=== PATIENT | male | born 1955 | race Hispanic/Latino ===

== ENCOUNTER 2025-05-16 04:12 | Inpatient (IN) | payer MEDICARE ==
[2025-05-16 05:34] LABS: ALT (SGPT) 7 U/L (Less than 45); AST (SGOT) 21 U/L (11-34); Albumin 2.8 g/dL (3.1-4.5); Alkaline Phosphatase 81 U/L (40-110); Anion Gap 13 mmol/L (10-20); BUN (Urea Nitrogen) 47 mg/dL (8.4-25.7); Bilirubin, Total 0.1 mg/dL (0.3-1.2); Calc. Creatinine Clearance 0 mL/min (70-130); Calcium 8.4 mg/dL (7.8-10.44); Carbon Dioxide 19 mmol/L (23-31); Chloride 112 mmol/L (98-107); Estimated GFR 19; Globulin 4.2 g/dL (2.4-3.5); Glucose 98 mg/dL (83-110); Lipase 64 U/L (8-78); Potassium 4.9 mmol/L (3.5-5.1); Sodium 139 mmol/L (136-145)
[2025-05-16 05:36] LABS: Troponin I 0.031 ng/mL (< 0.028)
[2025-05-16 05:43] LABS: #Basophils Less than 0.03 10x3/uL (0.0-0.2); #Eosinophils 0.13 10x3/uL (0.0-0.7); #Monocytes 0.71 10x3/uL (0.11-0.59); #Neutrophils 4.44 10x3/uL (1.40-6.50); %Basophils 0.2 % (0.0-1.0); %Eosinophils 2.1 % (0.0-10.0); %Lymphocytes 15.2 % (21.0-51.0); %Monocytes 11.3 % (0.0-10.0); %Neutrophils 70.9 % (42.0-75.0); Hematocrit 11.6 % (42.0-52.0); Hemoglobin 3.4 g/dL (14.0-18.0); Mean Corpuscular HGB CONC 29.3 g/dL (32.0-36.0); Mean Corpuscular Hemoglobin 21.8 pg (27.0-31.0); Mean Corpuscular Volume 74.4 fL (78.0-98.0); Platelet Count 353 10x3/uL (130-400); RBC Distribution Width 17.8 % (11.5-14.5); Red Blood Cell (RBC) Count 1.56 mill/uL (4.70-6.10); White Blood Cell (WBC) Count 6.26 10x3/uL (4.8-10.8)
[2025-05-16 07:54] LABS: Anisocytosis MODERATE=16-30 cells HPF (0-5); Band 2 % (5-11); Elliptocytes SLIGHT = 2-5 cells HPF (0-1); Eosinophils 5 % (0-10); Hypochromia SLIGHT = 6-15 cells HPF (0-5); Large Platelets 3.7 % (0-5); Lymphocytes 8 % (21-51); Metamyelocyte 1 % (0-0); Monocytes 6 % (0-10); Neutrophil 78 % (42-75); Platelet Adequacy Comment Platelets Normal; Smudge Cells 2.8 %
[2025-05-16 08:42] LABS: Bilirubin Negative (Negative); Blood, Urine Negative (Negative); Clarity Clear (Clear); Glucose, Urine (Dipstick) Normal (Negative); Ketone, Urine Negative (Negative); Leukocyte Negative Leu/uL (Negative); Nitrite Negative (Negative); Protein, Urine (Dipstick) Negative (Neg-Trace); Specific Gravity, Urine 1.011 (1.002-1.036); Urobilinogen Normal mg/dL (Less than 2)
[2025-05-16 08:55] LABS: CAUTI Indications for Culture Alt mental st,lethar; RBC/HPF None Seen HPF (0-3); Squamous Epithelial None Seen HPF (0-3); Urine Culture Reflex No No; WBC/HPF None Seen HPF (0-3)
[2025-05-16] MEDS ORDERED: Melatonin 3 MG TAB PO PRN (10:14)
[2025-05-16] MEDS ORDERED: Acetaminophen 325 MG TAB ONE (12:48)
[2025-05-16 12:54] LABS: Hemoglobin 6.9 g/dL (14.0-18.0)
[2025-05-16 13:36] LABS: INR-International Normal Ratio 1.2; Prothrombin Time 15.3 sec (12.0-14.7)
[2025-05-16 13:40] LABS: #Basophils 0.03 10x3/uL (0.0-0.2); #Eosinophils 0.07 10x3/uL (0.0-0.7); #Monocytes 0.58 10x3/uL (0.11-0.59); #Neutrophils 5.24 10x3/uL (1.40-6.50); %Basophils 0.4 % (0.0-1.0); %Lymphocytes 11.7 % (21.0-51.0); %Monocytes 8.6 % (0.0-10.0); %Neutrophils 77.9 % (42.0-75.0); Hematocrit 21.8 % (42.0-52.0); Hemoglobin 6.9 g/dL (14.0-18.0); Mean Corpuscular HGB CONC 31.7 g/dL (32.0-36.0); Mean Corpuscular Hemoglobin 24.8 pg (27.0-31.0); Mean Corpuscular Volume 78.4 fL (78.0-98.0); Mean Platelet Volume 10.2 fL (7.4-10.4); Platelet Count 349 10x3/uL (130-400); RBC Distribution Width 16.5 % (11.5-14.5); Red Blood Cell (RBC) Count 2.78 mill/uL (4.70-6.10); White Blood Cell (WBC) Count 6.74 10x3/uL (4.8-10.8)
[2025-05-16 15:54] VITALS: BMI 19.2
[2025-05-16 17:14] LABS: Hematocrit 19.2 % (42.0-52.0); Hemoglobin 6.3 g/dL (14.0-18.0)
[2025-05-16] MEDS: Sodium Ferric Gluconate 250 MG in Sodium Chloride 0.9% 250 ML 250 ML IVPB SCH ×2 (17:24→17:46)
[2025-05-16] MEDS: Tamsulosin HCl 0.4 MG CAP PO SCH (17:46)
[2025-05-17] MEDS: Acetaminophen 325 MG TAB PO PRN (00:35)
[2025-05-17 01:12] LABS: Hemoglobin 7.3 g/dL (14.0-18.0)
[2025-05-17 04:54] LABS: #Basophils 0.03 10x3/uL (0.0-0.2); #Eosinophils 0.11 10x3/uL (0.0-0.7); #Monocytes 0.74 10x3/uL (0.11-0.59); #Neutrophils 6.34 10x3/uL (1.40-6.50); %Basophils 0.4 % (0.0-1.0); %Eosinophils 1.4 % (0.0-10.0); %Lymphocytes 8.1 % (21.0-51.0); %Monocytes 9.4 % (0.0-10.0); %Neutrophils 80.3 % (42.0-75.0); Hematocrit 22.8 % (42.0-52.0); Hemoglobin 7.3 g/dL (14.0-18.0); Mean Corpuscular Hemoglobin 25.4 pg (27.0-31.0); Mean Corpuscular Volume 79.4 fL (78.0-98.0); Mean Platelet Volume 9.9 fL (7.4-10.4); Platelet Count 339 10x3/uL (130-400); RBC Distribution Width 16.4 % (11.5-14.5); Red Blood Cell (RBC) Count 2.87 mill/uL (4.70-6.10); White Blood Cell (WBC) Count 7.89 10x3/uL (4.8-10.8)
[2025-05-17 05:35] LABS: Phosphorus 4.2 mg/dL (2.5-4.5)
[2025-05-17 05:46] LABS: ALT (SGPT) Less than 7 U/L (Less than 45); AST (SGOT) 15 U/L (11-34); Alkaline Phosphatase 88 U/L (40-110); Anion Gap 19 mmol/L (10-20); BUN (Urea Nitrogen) 50 mg/dL (8.4-25.7); Bilirubin, Total 0.5 mg/dL (0.3-1.2); Calc. Creatinine Clearance 14 mL/min (70-130); Calcium 8.7 mg/dL (7.8-10.44); Carbon Dioxide 16 mmol/L (23-31); Chloride 110 mmol/L (98-107); Estimated GFR 17; Globulin 4.2 g/dL (2.4-3.5); Glucose 100 mg/dL (83-110); Magnesium 2.3 mg/dL (1.6-2.6); Protein, Total 7.2 g/dL (5.8-8.1); Sodium 140 mmol/L (136-145)
[2025-05-17] MEDS: Tamsulosin HCl 0.4 MG CAP PO SCH (08:37)
[2025-05-17] MEDS: fentaNYL 50 mcg/mL 1 mL Vial SLOW IVP SCH (08:37)
[2025-05-17] MEDS: Pantoprazole 40 MG DR.TAB PO SCH (08:38)
[2025-05-17] MEDS: MULTIVIT/IRON SULF/FOLIC ACID 1 EACH TAB PO SCH (08:38)
[2025-05-17] MEDS: Amlodipine 5 MG TAB PO SCH (08:39)
[2025-05-17] MEDS ORDERED: Amlodipine 5 MG TAB PO SCH (09:00)
[2025-05-17] MEDS ORDERED: Acetaminophen 325 MG TAB PO SCH (09:00)
[2025-05-17] MEDS ORDERED: Lidocaine 1% PF 5 ML VIAL ONE (12:00)
[2025-05-17] MEDS ORDERED: Sodium Bicarbonate 2.5 MEQ/5 ML SDV ONE (12:00)
[2025-05-17] MEDS: HYDROcodone/Acetaminophen 5/325 mg Tablet PO PRN (14:17)
[2025-05-17] MEDS: Ondansetron ODT 4 MG TAB PO PRN (15:16)
[2025-05-17 16:21] LABS: Hematocrit 23.7 % (42.0-52.0); Hemoglobin 7.6 g/dL (14.0-18.0)
[2025-05-17 17:16] LABS: CEA, Serum 1.78 ng/mL (< or = 5.0)
[2025-05-17] MEDS: Sodium Bicarbonate 150 MEQ in Dextrose 5% in Water 1,000 ML IV SCH (17:56)
[2025-05-17 18:24] LABS: PSA-Symptomatic (DIAGNOSTIC) 1.198 ng/mL (0-4.0)
[2025-05-17 20:36] LABS: Creatinine, Urine 71.7 mg/dL (22.00-328.00); Microalbumin Urine 1.5 mg/dL (0.5-50.0); Microalbumin/Creat Ratio 20.9 mg/g (Less than 30)
[2025-05-17] MEDS: Melatonin 3 MG TAB PO SCH (21:03)
[2025-05-18 05:04] LABS: Anion Gap 12 mmol/L (10-20); BUN (Urea Nitrogen) 40 mg/dL (8.4-25.7); Calc. Creatinine Clearance 16 mL/min (70-130); Calcium 8.5 mg/dL (7.8-10.44); Carbon Dioxide 20 mmol/L (23-31); Chloride 110 mmol/L (98-107); Estimated GFR 19; Glucose 93 mg/dL (83-110); Potassium 4.2 mmol/L (3.5-5.1); Sodium 138 mmol/L (136-145)
[2025-05-18] MEDS: Polyethylene Glycol 3350 17 GM Packet PO SCH (08:23)
[2025-05-18 10:36] LABS: #Basophils 0.03 10x3/uL (0.0-0.2); #Eosinophils 0.11 10x3/uL (0.0-0.7); #Monocytes 0.71 10x3/uL (0.11-0.59); #Neutrophils 5.48 10x3/uL (1.40-6.50); %Basophils 0.4 % (0.0-1.0); %Eosinophils 1.6 % (0.0-10.0); %Lymphocytes 8.7 % (21.0-51.0); %Monocytes 10.2 % (0.0-10.0); %Neutrophils 78.5 % (42.0-75.0); Hematocrit 20.4 % (42.0-52.0); Hemoglobin 6.8 g/dL (14.0-18.0); Mean Corpuscular HGB CONC 33.3 g/dL (32.0-36.0); Mean Corpuscular Hemoglobin 26.2 pg (27.0-31.0); Mean Corpuscular Volume 78.5 fL (78.0-98.0); Mean Platelet Volume 9.4 fL (7.4-10.4); Platelet Count 246 10x3/uL (130-400); RBC Distribution Width 17.2 % (11.5-14.5); White Blood Cell (WBC) Count 6.98 10x3/uL (4.8-10.8)
[2025-05-18] MEDS ORDERED: Sodium Ferric Gluconate 250 MG in Sodium Chloride 0.9% 250 ML 250 ML IVPB SCH (12:00)
[2025-05-18 21:08] LABS: Hematocrit 27.5 % (42.0-52.0); Hemoglobin 8.8 g/dL (14.0-18.0); Platelet Count 278 10x3/uL (130-400)
[2025-05-19 03:37] LABS: #Basophils Less than 0.03 10x3/uL (0.0-0.2); #Eosinophils 0.13 10x3/uL (0.0-0.7); #Monocytes 0.88 10x3/uL (0.11-0.59); #Neutrophils 5.98 10x3/uL (1.40-6.50); %Basophils 0.3 % (0.0-1.0); %Eosinophils 1.7 % (0.0-10.0); %Lymphocytes 8.6 % (21.0-51.0); %Monocytes 11.4 % (0.0-10.0); %Neutrophils 77.6 % (42.0-75.0); Hematocrit 25.2 % (42.0-52.0); Hemoglobin 8.1 g/dL (14.0-18.0); Mean Corpuscular HGB CONC 32.1 g/dL (32.0-36.0); Mean Platelet Volume 9.8 fL (7.4-10.4); Platelet Count 259 10x3/uL (130-400); RBC Distribution Width 17.1 % (11.5-14.5); Red Blood Cell (RBC) Count 3.11 mill/uL (4.70-6.10)
[2025-05-19 04:12] LABS: Anion Gap 12 mmol/L (10-20); BUN (Urea Nitrogen) 34 mg/dL (8.4-25.7); Calc. Creatinine Clearance 15 mL/min (70-130); Calcium 8.4 mg/dL (7.8-10.44); Carbon Dioxide 25 mmol/L (23-31); Chloride 108 mmol/L (98-107); Estimated GFR 18; Glucose 103 mg/dL (83-110); Sodium 141 mmol/L (136-145)
[2025-05-19] MEDS ORDERED: Lidocaine 1% w/Epinephrine 1:100K 20 ML VIAL ONE (07:57)
[2025-05-19] MEDS ORDERED: Sodium Chloride 0.9% 500 ML ONE (07:58)
[2025-05-19] MEDS ORDERED: Iopamidol 30 ML ONE (07:58)
[2025-05-19] MEDS ORDERED: Sodium Bicarbonate 2.5 MEQ/5 ML SDV ONE (07:58)
[2025-05-19] MEDS: Senokot S 8.6-50 MG TAB PO SCH (08:09)
[2025-05-19] MEDS ORDERED: Fentanyl 100 MCG/2 ML VIAL ONE (08:18)
[2025-05-19] MEDS ORDERED: Midazolam HCl 2 mg/2 ml Vial ONE (08:18)
[2025-05-19] MEDS ORDERED: LevoFLOXacin D5W 500 mg (100 mL) BAG ONE ×2 (09:32→10:17)
[2025-05-19] MEDS: Sodium Chloride 0.45% 1,000 ML IV SCH (12:36)
[2025-05-19 13:14] LABS: Anisocytosis SLIGHT = 6-15 cells HPF (0-5); Band 5 % (5-11); Burr Cells SLIGHT = 2-5 cells HPF (0-1); Eosinophils 5 % (0-10); Large Platelets 1.7 % (0-5); Lymphocytes 3 % (21-51); Macrocytosis SLIGHT = 6-15 cells HPF (0-5); Monocytes 7 % (0-10); Neutrophil 81 % (42-75); Ovalocytes SLIGHT = 2-5 cells HPF (0-1); Platelet Adequacy Comment Platelets Normal; Polychromasia SLIGHT = 2-3 cells HPF (0-2); Smudge Cells 4.2 %; Vacuoles MODERATE
[2025-05-19] MEDS: Calcium Carbonate 500 MG ChewTAB PO PRN (21:57)
[2025-05-20 04:45] LABS: #Basophils Less than 0.03 10x3/uL (0.0-0.2); #Eosinophils 0.08 10x3/uL (0.0-0.7); #Monocytes 0.75 10x3/uL (0.11-0.59); #Neutrophils 4.23 10x3/uL (1.40-6.50); %Basophils 0.2 % (0.0-1.0); %Eosinophils 1.4 % (0.0-10.0); %Lymphocytes 9.7 % (21.0-51.0); %Monocytes 13.3 % (0.0-10.0); %Neutrophils 74.9 % (42.0-75.0); Hemoglobin 8.3 g/dL (14.0-18.0); Mean Corpuscular HGB CONC 31.9 g/dL (32.0-36.0); Mean Corpuscular Hemoglobin 26.3 pg (27.0-31.0); Mean Corpuscular Volume 82.5 fL (78.0-98.0); Platelet Count 255 10x3/uL (130-400); RBC Distribution Width 17.6 % (11.5-14.5); Red Blood Cell (RBC) Count 3.15 mill/uL (4.70-6.10); White Blood Cell (WBC) Count 5.65 10x3/uL (4.8-10.8)
[2025-05-20 04:56] LABS: Anion Gap 14 mmol/L (10-20); BUN (Urea Nitrogen) 29 mg/dL (8.4-25.7); Calc. Creatinine Clearance 16 mL/min (70-130); Calcium 8.8 mg/dL (7.8-10.44); Carbon Dioxide 27 mmol/L (23-31); Chloride 104 mmol/L (98-107); Estimated GFR 19; Glucose 87 mg/dL (83-110); Potassium 3.7 mmol/L (3.5-5.1); Sodium 141 mmol/L (136-145)
[2025-05-20] MEDS: Lidocaine 2% Viscous Solution 10 ML, Aluminum & Magnesium Hydroxide 30 ML SSW SCH ×2 (06:39→16:29)
[2025-05-20] MEDS: Sodium Chloride 0.45% 1,000 ML IV SCH (09:12)
[2025-05-20] MEDS: Potassium Chloride 20 MEQ TAB PO SCH (11:40)
[2025-05-20] MEDS ORDERED: Transdermal Patch Removal TOP PRN (15:43)
[2025-05-20] MEDS: Polyethylene Glycol 3350 17 GM Packet PO SCH (16:30)
[2025-05-20] MEDS: Melatonin 3 MG TAB PO SCH (21:01)
[2025-05-20] MEDS: Senokot S 8.6-50 MG TAB PO SCH (21:01)
[2025-05-21 04:38] LABS: #Basophils Less than 0.03 10x3/uL (0.0-0.2); #Eosinophils 0.03 10x3/uL (0.0-0.7); #Monocytes 0.73 10x3/uL (0.11-0.59); %Basophils 0.2 % (0.0-1.0); %Eosinophils 0.5 % (0.0-10.0); %Lymphocytes 8.7 % (21.0-51.0); %Monocytes 11.9 % (0.0-10.0); %Neutrophils 78.4 % (42.0-75.0); Hematocrit 26.9 % (42.0-52.0); Hemoglobin 8.7 g/dL (14.0-18.0); Mean Corpuscular HGB CONC 32.3 g/dL (32.0-36.0); Mean Corpuscular Hemoglobin 26.6 pg (27.0-31.0); Mean Corpuscular Volume 82.3 fL (78.0-98.0); Mean Platelet Volume 9.8 fL (7.4-10.4); Platelet Count 246 10x3/uL (130-400); Red Blood Cell (RBC) Count 3.27 mill/uL (4.70-6.10); White Blood Cell (WBC) Count 6.12 10x3/uL (4.8-10.8)
[2025-05-21 05:00] LABS: Anion Gap 14 mmol/L (10-20); BUN (Urea Nitrogen) 28 mg/dL (8.4-25.7); Calc. Creatinine Clearance 19 mL/min (70-130); Carbon Dioxide 25 mmol/L (23-31); Chloride 105 mmol/L (98-107); Estimated GFR 24; Glucose 97 mg/dL (83-110); Sodium 140 mmol/L (136-145)
[2025-05-21] MEDS: Ondansetron PF 4 MG/2 ML Vial IVP SCH (05:15)
[2025-05-21] MEDS: Polyethylene Glycol 3350 17 GM Packet PO SCH (11:15)
[2025-05-21] MEDS: hydrALAZINE 20 MG/ML VIAL SLOW IVP PRN (17:10)
[2025-05-22] MEDS: Ondansetron PF 4 MG/2 ML Vial IVP PRN (04:51)
[2025-05-22 05:25] LABS: Anion Gap 17 mmol/L (10-20); BUN (Urea Nitrogen) 28 mg/dL (8.4-25.7); Calc. Creatinine Clearance 24 mL/min (70-130); Carbon Dioxide 21 mmol/L (23-31); Chloride 104 mmol/L (98-107); Potassium 3.9 mmol/L (3.5-5.1); Sodium 138 mmol/L (136-145)
[2025-05-22 05:26] LABS: Calcium 8.9 mg/dL (7.8-10.44); Estimated GFR 30; Glucose 70 mg/dL (83-110)
[2025-05-22 15:45] LABS: Hematocrit 29.2 % (42.0-52.0); Hemoglobin 9.2 g/dL (14.0-18.0)
[2025-05-22] MEDS: Lidocaine 4% Patch TD PRN (17:41)
[2025-05-22] MEDS ORDERED: Baclofen 10 MG TAB PO SCH (23:45)
[2025-05-22] MEDS ORDERED: Ketorolac Tromethamine 30 MG (1 mL) VIAL IVP SCH (23:45)
[2025-05-23] MEDS: Baclofen 10 MG TAB PER TUBE SCH (01:32)
[2025-05-23] MEDS: Lidocaine 4% Topical Sol 50 ML BOT TOP SCH (02:25)
[2025-05-23] MEDS: Pantoprazole 40 MG VIAL IVP SCH (08:41)
[2025-05-23 08:49] LABS: #Basophils Less than 0.03 10x3/uL (0.0-0.2); #Eosinophils 0.06 10x3/uL (0.0-0.7); #Monocytes 0.75 10x3/uL (0.11-0.59); #Neutrophils 4.79 10x3/uL (1.40-6.50); %Basophils 0.3 % (0.0-1.0); %Lymphocytes 7.4 % (21.0-51.0); %Monocytes 12.3 % (0.0-10.0); %Neutrophils 78.7 % (42.0-75.0); Hematocrit 29.2 % (42.0-52.0); Hemoglobin 9.1 g/dL (14.0-18.0); Mean Corpuscular HGB CONC 31.2 g/dL (32.0-36.0); Mean Corpuscular Hemoglobin 26.3 pg (27.0-31.0); Mean Corpuscular Volume 84.4 fL (78.0-98.0); Mean Platelet Volume 9.6 fL (7.4-10.4); Platelet Count 236 10x3/uL (130-400); RBC Distribution Width 18.4 % (11.5-14.5); Red Blood Cell (RBC) Count 3.46 mill/uL (4.70-6.10); White Blood Cell (WBC) Count 6.09 10x3/uL (4.8-10.8)
[2025-05-23 09:06] LABS: ALT (SGPT) 19 U/L (Less than 45); AST (SGOT) 37 U/L (11-34); Albumin 2.7 g/dL (3.1-4.5); Alkaline Phosphatase 85 U/L (40-110); Anion Gap 22 mmol/L (10-20); BUN (Urea Nitrogen) 30 mg/dL (8.4-25.7); Bilirubin, Total 0.6 mg/dL (0.3-1.2); Calc. Creatinine Clearance 27 mL/min (70-130); Carbon Dioxide 18 mmol/L (23-31); Chloride 101 mmol/L (98-107); Estimated GFR 35; Globulin 4.2 g/dL (2.4-3.5); Glucose 69 mg/dL (83-110); Protein, Total 6.9 g/dL (5.8-8.1); Sodium 137 mmol/L (136-145)
[2025-05-23] MEDS ORDERED: MD-Gastroview 120 ML BOT ONE (09:49)
[2025-05-23] MEDS: Enoxaparin 30 MG (0.3 mL) SYRINGE SC SCH ×2 (13:31→17:10)
[2025-05-23] MEDS: Acetaminophen 650 MG Suppository PR SCH (16:46)
[2025-05-23 17:26] LABS: Troponin I 0.151 ng/mL (< 0.028)
[2025-05-23] MEDS: EPOETIN ALFA-EPBX 10,000 UNITS/ML VIAL SC SCH (18:14)
[2025-05-23 21:47] LABS: Troponin I 0.176 ng/mL (< 0.028)
[2025-05-24 00:19] LABS: Troponin I 0.184 ng/mL (< 0.028)
[2025-05-24] MEDS: Acetaminophen 325 MG TAB PO PRN (03:40)
[2025-05-24 05:12] LABS: #Basophils 0.03 10x3/uL (0.0-0.2); #Eosinophils 0.08 10x3/uL (0.0-0.7); #Monocytes 0.86 10x3/uL (0.11-0.59); #Neutrophils 3.83 10x3/uL (1.40-6.50); %Basophils 0.6 % (0.0-1.0); %Eosinophils 1.5 % (0.0-10.0); %Lymphocytes 8.9 % (21.0-51.0); %Monocytes 16.2 % (0.0-10.0); Hematocrit 27.9 % (42.0-52.0); Hemoglobin 8.9 g/dL (14.0-18.0); Mean Corpuscular HGB CONC 31.9 g/dL (32.0-36.0); Mean Corpuscular Hemoglobin 26.3 pg (27.0-31.0); Mean Corpuscular Volume 82.3 fL (78.0-98.0); Mean Platelet Volume 9.9 fL (7.4-10.4); Platelet Count 225 10x3/uL (130-400); RBC Distribution Width 18.6 % (11.5-14.5); Red Blood Cell (RBC) Count 3.39 mill/uL (4.70-6.10); White Blood Cell (WBC) Count 5.31 10x3/uL (4.8-10.8)
[2025-05-24 05:28] LABS: Troponin I 0.134 ng/mL (< 0.028)
[2025-05-24 05:34] LABS: ALT (SGPT) 21 U/L (Less than 45); AST (SGOT) 29 U/L (11-34); Albumin 2.6 g/dL (3.1-4.5); Alkaline Phosphatase 85 U/L (40-110); Anion Gap 14 mmol/L (10-20); BUN (Urea Nitrogen) 32 mg/dL (8.4-25.7); Bilirubin, Total 0.4 mg/dL (0.3-1.2); Calc. Creatinine Clearance 25 mL/min (70-130); Calcium 8.4 mg/dL (7.8-10.44); Carbon Dioxide 26 mmol/L (23-31); Chloride 102 mmol/L (98-107); Estimated GFR 33; Globulin 3.6 g/dL (2.4-3.5); Glucose 108 mg/dL (83-110); Potassium 3.6 mmol/L (3.5-5.1); Protein, Total 6.2 g/dL (5.8-8.1); Sodium 138 mmol/L (136-145)
[2025-05-24] MEDS: Senokot S 8.6-50 MG TAB PO SCH (07:41)
[2025-05-24] MEDS: Amlodipine 5 MG TAB PO SCH (07:42)
[2025-05-24] MEDS ORDERED: Morphine 2 MG/ML VIAL SLOW IVP PRN (08:42)
[2025-05-24] MEDS: Morphine 2 MG/ML VIAL SLOW IVP SCH (08:45)
[2025-05-24] MEDS ORDERED: Enoxaparin 30 MG (0.3 mL) SYRINGE SC SCH (09:00)
[2025-05-24] MEDS ORDERED: Lidocaine 1% PF 5 ML VIAL ONE (10:33)
[2025-05-24] MEDS ORDERED: Sodium Bicarbonate 2.5 MEQ/5 ML SDV ONE (10:33)
[2025-05-24] MEDS ORDERED: PEGFILGRASTIM-JMDB 6 MG/0.6 ML SYRINGE SQ SCH (12:30)
[2025-05-24] MEDS ORDERED: Dexamethasone 20 MG in Sodium Chloride 0.9% 50 ML IVPB SCH (12:30)
[2025-05-24] MEDS ORDERED: vinCRIStine Sulfate 2 MG in Sodium Chloride 0.9% 50 ML IVPB SCH (12:30)
[2025-05-24] MEDS ORDERED: Acetaminophen 500 MG TAB PO SCH (12:30)
[2025-05-24] MEDS ORDERED: PALONOSETRON HCL 0.05 MG/ML 5 ML VIAL IVP SCH (12:30)
[2025-05-24] MEDS ORDERED: diphenhydrAMINE 50 MG in Sodium Chloride 0.9% 50 ML IVP SCH (12:30)
[2025-05-24] MEDS ORDERED: Fosaprepitant Dimeglumine 150 MG in 0.9 % Sodium Chloride 145 ML IVPB SCH (12:30)
[2025-05-24] MEDS ORDERED: PEGFILGRASTIM-PBBK 6 MG/0.6 ML SYRINGE SQ SCH (12:45)
[2025-05-24] MEDS ORDERED: predniSONE 50 MG TAB PO SCH (12:45)
[2025-05-24] MEDS: NIFEdipine XL 30 MG ER.TAB PO SCH (12:52)
[2025-05-24] MEDS: Allopurinol 300 MG TAB PO SCH (18:09)
[2025-05-24] MEDS: Mupirocin 1 GM TUBE NASAL DECOLONIZATION NASAL SCH (22:26)
[2025-05-24] MEDS: Morphine 2 MG/ML VIAL SLOW IVP PRN (23:35)
[2025-05-25 04:11] LABS: #Basophils Less than 0.03 10x3/uL (0.0-0.2); #Eosinophils 0.14 10x3/uL (0.0-0.7); #Monocytes 0.65 10x3/uL (0.11-0.59); #Neutrophils 3.63 10x3/uL (1.40-6.50); %Basophils 0.4 % (0.0-1.0); %Eosinophils 2.7 % (0.0-10.0); %Lymphocytes 12.7 % (21.0-51.0); %Monocytes 12.7 % (0.0-10.0); %Neutrophils 70.7 % (42.0-75.0); Hematocrit 27.8 % (42.0-52.0); Hemoglobin 8.9 g/dL (14.0-18.0); Mean Corpuscular Hemoglobin 26.2 pg (27.0-31.0); Mean Corpuscular Volume 81.8 fL (78.0-98.0); Platelet Count 225 10x3/uL (130-400); RBC Distribution Width 18.5 % (11.5-14.5); White Blood Cell (WBC) Count 5.13 10x3/uL (4.8-10.8)
[2025-05-25 04:30] LABS: ALT (SGPT) 16 U/L (Less than 45); AST (SGOT) 31 U/L (11-34); Albumin 2.6 g/dL (3.1-4.5); Alkaline Phosphatase 85 U/L (40-110); Anion Gap 9 mmol/L (10-20); BUN (Urea Nitrogen) 24 mg/dL (8.4-25.7); Bilirubin, Total 0.3 mg/dL (0.3-1.2); Calc. Creatinine Clearance 30 mL/min (70-130); Calcium 8.4 mg/dL (7.8-10.44); Carbon Dioxide 26 mmol/L (23-31); Chloride 105 mmol/L (98-107); Estimated GFR 40; Glucose 101 mg/dL (83-110); Potassium 3.4 mmol/L (3.5-5.1); Protein, Total 6.6 g/dL (5.8-8.1); Sodium 137 mmol/L (136-145); Uric Acid 7.1 mg/dL (3.7-7.7)
[2025-05-25] MEDS: Potassium Chloride 20 MEQ TAB PO SCH (08:46)
[2025-05-25] MEDS: Allopurinol 300 MG TAB PO SCH (08:48)
[2025-05-25] MEDS: NIFEdipine XL 60 MG ER.TAB PO SCH (08:48)
[2025-05-25] MEDS ORDERED: NIFEdipine XL 30 MG ER.TAB PO SCH (09:00)
[2025-05-25] MEDS: Acetaminophen 500 MG TAB PO SCH (09:56)
[2025-05-25] MEDS: diphenhydrAMINE 50 MG/ML VIAL IVP SCH (09:56)
[2025-05-25] MEDS: Fosaprepitant Dimeglumine 150 MG in 0.9 % Sodium Chloride 150 ML IVPB SCH (16:53)
[2025-05-25] MEDS: Dexamethasone Sod Phosphate 20 MG in Sodium Chloride 0.9% 50 ML IVPB SCH (16:56)
[2025-05-25] MEDS: PALONOSETRON HCL 0.05 MG/ML 5 ML VIAL IVP SCH (17:53)
[2025-05-25] MEDS: vinCRIStine Sulfate 2 MG in Sodium Chloride 0.9% 50 ML IVPB SCH (18:38)
[2025-05-26 05:32] LABS: #Basophils Less than 0.03 10x3/uL (0.0-0.2); #Eosinophils Less than 0.03 10x3/uL (0.0-0.7); #Monocytes 0.06 10x3/uL (0.11-0.59); #Neutrophils 6.03 10x3/uL (1.40-6.50); %Basophils 0.2 % (0.0-1.0); %Lymphocytes 2.5 % (21.0-51.0); %Monocytes 0.9 % (0.0-10.0); %Neutrophils 95.3 % (42.0-75.0); Hematocrit 26.1 % (42.0-52.0); Hemoglobin 8.4 g/dL (14.0-18.0); Mean Corpuscular HGB CONC 32.2 g/dL (32.0-36.0); Mean Corpuscular Hemoglobin 26.7 pg (27.0-31.0); Mean Corpuscular Volume 82.9 fL (78.0-98.0); Mean Platelet Volume 10.3 fL (7.4-10.4); Platelet Count 214 10x3/uL (130-400); RBC Distribution Width 18.6 % (11.5-14.5); Red Blood Cell (RBC) Count 3.15 mill/uL (4.70-6.10); White Blood Cell (WBC) Count 6.33 10x3/uL (4.8-10.8)
[2025-05-26 05:52] LABS: ALT (SGPT) 18 U/L (Less than 45); AST (SGOT) 38 U/L (11-34); Albumin 2.5 g/dL (3.1-4.5); Alkaline Phosphatase 98 U/L (40-110); Anion Gap 12 mmol/L (10-20); BUN (Urea Nitrogen) 25 mg/dL (8.4-25.7); Bilirubin, Total 0.3 mg/dL (0.3-1.2); Calc. Creatinine Clearance 28 mL/min (70-130); Calcium 8.1 mg/dL (7.8-10.44); Carbon Dioxide 23 mmol/L (23-31); Chloride 105 mmol/L (98-107); Estimated GFR 37; Globulin 3.9 g/dL (2.4-3.5); Glucose 142 mg/dL (83-110); Potassium 4.3 mmol/L (3.5-5.1); Protein, Total 6.4 g/dL (5.8-8.1); Sodium 136 mmol/L (136-145); Uric Acid 5.3 mg/dL (3.7-7.7)
[2025-05-26 10:47] VITALS: BMI 19.3
[2025-05-26] MEDS: PEGFILGRASTIM-PBBK 6 MG/0.6 ML SYRINGE SQ SCH (19:42)
[2025-05-26 19:58] VITALS: BP 125/76; TEMP 97.7
== END 2025-05-26 20:00 | disposition home health service (06) | DRG 823 ==
LOC: ERS 04:12 → ERHOLD 10:00 → 2NO 15:40 → MSONC 05-23 23:23
PROVIDERS: ADMIT Emergency Medicine; ATTEND Emergency Medicine
PROC: 30233N1 Transfusion of Nonautologous Red Blood Cells into Peripheral Vein, Percutaneous Approach (ICD-10-PCS; 2025-05-16)
PROC: 07BJ3ZX Excision of Left Inguinal Lymphatic, Percutaneous Approach, Diagnostic (ICD-10-PCS; principal; 2025-05-17)
PROC: 0T9030Z Drainage of Right Kidney with Drainage Device, Percutaneous Approach (ICD-10-PCS; 2025-05-19)
PROC: 02HV33Z Insertion of Infusion Device into Superior Vena Cava, Percutaneous Approach (ICD-10-PCS; 2025-05-24)
PROC: B5181ZA Fluoroscopy of Superior Vena Cava using Low Osmolar Contrast, Guidance (ICD-10-PCS; 2025-05-24)
PROC: 3E0330M Introduction of Antineoplastic, Monoclonal Antibody, into Peripheral Vein, Percutaneous Approach (ICD-10-PCS; 2025-05-25)
DX: C83.35 Diffuse large B-cell lymphoma, lymph nodes of inguinal region and lower limb (principal); E43 Unspecified severe protein-calorie malnutrition; N13.1 Hydronephrosis with ureteral stricture, not elsewhere classified; N18.4 Chronic kidney disease, stage 4 (severe); E87.20 Acidosis, unspecified; N17.9 Acute kidney failure, unspecified; Z68.1 Body mass index [BMI] 19.9 or less, adult; K80.21 Calculus of gallbladder without cholecystitis with obstruction; K56.609 Unspecified intestinal obstruction, unspecified as to partial versus complete obstruction; F41.9 Anxiety disorder, unspecified; F32.A Depression, unspecified; Z66 Do not resuscitate; I12.9 Hypertensive chronic kidney disease with stage 1 through stage 4 chronic kidney disease, or unspecified chronic kidney disease; E87.5 Hyperkalemia; E88.09 Other disorders of plasma-protein metabolism, not elsewhere classified; D63.1 Anemia in chronic kidney disease; D63.0 Anemia in neoplastic disease; F10.20 Alcohol dependence, uncomplicated; F17.210 Nicotine dependence, cigarettes, uncomplicated; R63.0 Anorexia; R63.4 Abnormal weight loss; R63.8 Other symptoms and signs concerning food and fluid intake; D50.9 Iron deficiency anemia, unspecified; D53.9 Nutritional anemia, unspecified; Z79.82 Long term (current) use of aspirin
CPT/HCPCS: 20206; 36415; 36416; 36430; 36573; 50432; 51702; 71250; 72195; 74018; 74176; 74177; 74181; 74250; 76942; 80048; 80053; 81001; 82043; 82105; 82306; 82378; 83605; 83615; 83690; 83735; 83970; 84100; 84153; 84156; 84443; 84484; 84550; 85014; 85018; 85025; 85610; 85730; 86850; 86900; 86901; 88184; 88185; 88189; 88307; 88333; 88334; 88341; 88342; 88360; 88365; 93005; 93010; 93306; 99152; 99153; C1729; C1751; C1769; J0360; J1100; J1200; J1453; J1650; J1956; J2250; J2272; J2405; J2469; J2470; J2916; J3010; J7030; J7050; J7070; J9000; J9071; J9370; P9016; Q0162; Q5106; Q5123; Q5130; Q9963; Q9967

== ENCOUNTER → 2025-06-24 | Day surgery (SDC) | payer MEDICARE ==
[~2025-06-24] MED LIST: CEFAZOLIN 1 GM VIAL ONE; Lidocaine 1% w/Epinephrine 1:100K 20 ML VIAL ONE; Sodium Bicarbonate 2.5 MEQ/5 ML SDV ONE
[2025-06-24 08:11] LABS: INR-International Normal Ratio 1.0; Prothrombin Time 13.6 sec (12.0-14.7)
[2025-06-24 08:13] LABS: PTT 33.6 sec (22.9-36.1)
[2025-06-24 08:14] LABS: #Basophils 0.10 10x3/uL (0.0-0.2); #Eosinophils 0.41 10x3/uL (0.0-0.7); #Monocytes 0.93 10x3/uL (0.11-0.59); #Neutrophils 4.36 10x3/uL (1.40-6.50); %Basophils 1.4 % (0.0-1.0); %Eosinophils 5.9 % (0.0-10.0); %Lymphocytes 13.1 % (21.0-51.0); %Monocytes 13.4 % (0.0-10.0); %Neutrophils 62.9 % (42.0-75.0); Hematocrit 28.0 % (42.0-52.0); Hemoglobin 8.7 g/dL (14.0-18.0); Mean Corpuscular Hemoglobin 28.7 pg (27.0-31.0); Mean Corpuscular Volume 92.4 fL (78.0-98.0); Platelet Count 299 10x3/uL (130-400); Red Blood Cell (RBC) Count 3.03 mill/uL (4.70-6.10); White Blood Cell (WBC) Count 6.94 10x3/uL (4.8-10.8)
[2025-06-24 09:41] LABS: Anisocytosis MODERATE=16-30 cells HPF (0-5); Burr Cells SLIGHT = 2-5 cells HPF (0-1); Macrocytosis SLIGHT = 6-15 cells HPF (0-5); Platelet Adequacy Comment Platelets Normal; Polychromasia MODERATE = 3-4 cells HPF (0-2); Schistocytes SLIGHT = 2-5 cells HPF (0-1)
== END ==
LOC: SPEC 07:34
PROVIDERS: ATTEND Internal Medicine Hematology & Oncology
DX: C83.33 Diffuse large B-cell lymphoma, intra-abdominal lymph nodes (principal)
CPT/HCPCS: 36561; 71045; 71046; 76937 ×2; 77001 ×2; 85025; 85610; 85730; C1769 ×2; C1788; J0690; J1642; J2250; J3010; J7030; 36415; 99152; 99153

== ENCOUNTER 2025-09-06 08:45 | Outpatient (CLI) | payer MEDICARE | END 2025-09-06 08:46 | disposition home or self-care (01) | LOC: PET 08:45 | PROVIDERS: ATTEND Internal Medicine Hematology & Oncology | DX: C83.33 Diffuse large B-cell lymphoma, intra-abdominal lymph nodes (principal) | CPT/HCPCS: 78815; A9552 ==

== ENCOUNTER 2025-09-22 11:58 | Day surgery (SDC) | payer MEDICARE ==
[2025-09-22] MEDS ORDERED: Sodium Bicarbonate 2.5 MEQ/5 ML SDV ONE (13:00)
[2025-09-22] MEDS ORDERED: Lidocaine 1% PF 5 ML VIAL ONE (13:00)
[2025-09-22] MEDS ORDERED: Iopamidol 100 ML FS ONE (13:01)
[2025-09-22 13:39] VITALS: BP 123/70; TEMP 98.5
== END 2025-09-22 14:45 | disposition home or self-care (01) ==
LOC: SPEC 11:58
PROVIDERS: ATTEND Urology
PROC: 0T25X0Z Change Drainage Device in Kidney, External Approach (ICD-10-PCS; principal; 2025-09-22)
DX: N13.1 Hydronephrosis with ureteral stricture, not elsewhere classified (principal)
CPT/HCPCS: 50435; 75984; J7030; Q9967; C1729; C1769

== ENCOUNTER 2025-11-30 08:45 | Outpatient (CLI) | payer MEDICARE | END 2025-11-30 08:46 | disposition home or self-care (01) | LOC: PET 08:45 | PROVIDERS: ATTEND Internal Medicine Hematology & Oncology | DX: C83.33 Diffuse large B-cell lymphoma, intra-abdominal lymph nodes (principal) | CPT/HCPCS: 78815; A9552 ==